=== PATIENT | male | born 1965 | race Caucasian/White ===

== ENCOUNTER 2019-02-02 15:26 | Emergency (ER) | payer MEDICARE, MEDICAID ==
[~2019-02-02] VITALS: Ht 170.2 cm; Wt 72.0 kg
[2019-02-02] MEDS ORDERED: TETANUS, DIPHTHERIA, PERTUSSIS VAC/PF 0.5ML (>7YR OLD) IM ONE (18:15)
[2019-02-02] MEDS ORDERED: HYDROCODONE/ACETAMINOPHEN 10/325MG TABLET PO ONE (18:15)
[2019-02-02] MEDS ORDERED: ONDANSETRON HCL 4MG/2ML INJ IV STA (18:20)
[2019-02-02] MEDS ORDERED: MORPHINE SULFATE 4 MG/ML CPJ (NOT FOR IM USE) IV STA (18:20)
[2019-02-02] MEDS ORDERED: VANCOMYCIN 1 G PREMIX 200 ML IV ONE (18:30)
[2019-02-02] MEDS ORDERED: SODIUM CHLORIDE 0.9% 1000ML BAG (SEPSIS BOLUS) IV ONE (18:30)
[2019-02-02 18:54] LABS: HEMATOCRIT. 42.1 % (42.0-52.0); HEMOGLOBIN. 14.4 g/dL (14.0-18.0); MEAN CORPUSCULAR HEMOGLOBIN 30.6 pg (28.0-32.0); MEAN CORPUSCULAR VOLUME 89.1 fL (80.0-94.0); MEAN PLATELET VOLUME 8.6 fl (7.4-10.4); PLATELET 349 x1000/uL (130-400); RED BLOOD CELL COUNT 4.72 mill/uL (4.7-6.1); RED CELL DISTRIBUTION WIDTH 13.9 % (11.6-14.6)
[2019-02-02 18:55] LABS: CHLORIDE 101 mEq/L (98-107); INR 0.9; PROTHROMBIN TIME 9.7 sec (9.6-11.0)
[2019-02-02 19:19] LABS: PLATELET ESTIMATE NORMAL
[2019-02-02] MEDS ORDERED: HYDROMORPHONE HCL/PF 2MG/ML CPJ IV ONE (22:00)
[2019-02-03] MEDS ORDERED: MORPHINE SULFATE 4 MG/ML CPJ (NOT FOR IM USE) IV ONE (03:15)
[2019-02-03] MEDS ORDERED: PIPERACILLIN/TAZ 3.375G PREMIX 50 ML IV ONE (03:45)
[2019-02-03] MEDS ORDERED: VANCOMYCIN 1 G PREMIX 200 ML IV ONE (03:45)
[2019-02-03] MEDS ORDERED: CLINDAMYCIN 600 MG in DEXTROSE 5% WATER 50 ML IV ONE (03:45)
[2019-02-03] MEDS ORDERED: CLINDAMYCIN 600 MG in SODIUM CHLORIDE 0.9% 50 ML IV NR (05:45)
[2019-02-03 10:05] VITALS: BP 125/80
== END 2019-02-03 10:45 | disposition short-term general hospital (02) ==
LOC: ER 15:26 → CANBEDREQ 02-03 06:47 → ER 02-03 10:45
DX: A41.9 Sepsis, unspecified organism (principal); A48.0 Gas gangrene; M72.6 Necrotizing fasciitis; L03.012 Cellulitis of left finger
CPT/HCPCS: 36415; 71045; 73130; 80053; 83605; 84145; 84484; 85025; 85610; 87040; 87086; 90471; 90715; 93005; 96365; 96366; 96367; 96375; 96376; 99291; J1170; J2270; J2405; J2543; J3370; J3490; J7030; J7060